=== PATIENT | male | born 1960 | race African-American/Black ===

== ENCOUNTER → 2018-06-22 | Day surgery (SDC) | payer OTHER ==
[~2018-06-22] MED LIST: BUPIVACAINE HCL 0.5 % INJ/PF 30 ML SDV ONE; LIDOCAINE 1% INJ-PF (10 MG/ML) 30 ML SDV ONE; METHYLPREDNISOLONE ACETATE INJ 40 MG/1 ML ML ONE
--- NOTE | 2018-06-22 15:36 | OPERATIVE REPORT E ---
Operative Report NAME: JANNET APARICIO : 1960 AGE: 57Y DATE OF SURGERY: 06/22/2018 ROOM: PREOPERATIVE DIAGNOSIS: LUMBAR SPONDYLOSIS, L5-S1 WITH INTRACTABLE LOWER BACK PAIN. POSTOPERATIVE DIAGNOSIS: LUMBAR SPONDYLOSIS, L5-S1 WITH INTRACTABLE LOWER BACK PAIN. OPERATION: Cold radiofrequency ablation at the L5 and sacral ala levels using fluoroscopy and cold RF technology. SURGEON: JOSE MUNOZ M.D. ANESTHESIA: Local. INDICATIONS: Positive relief with test blockade of the same regions. COMPLICATIONS: None. BLOOD LOSS: None. SPECIMENS REMOVED: None. PROCEDURE: After obtaining informed consent,advising the patient of the risks and benefits including neurological injury, bleeding, infection, aggravation of pain, allergic reaction, paralysis, and he was taken to the fluoroscopy suite placed comfortably in the prone position. He was evaluated under fluoroscopy and suitable entrance sites were selected for placement of the needles at the right and left L5-S1 regions. Beginning on the right, *------* was placed above the L5 transverse process and the sacral ala using 1% lidocaine. A small incision was made in the skin. The RF trocar was then inserted under fluoroscopic guidance to be positioned at the junction of the transverse processes and the superior articulating surface followed by the sacral ala and its superior articulating surface on the right. Probes were placed and testing began with motor and sensory functions. These were satisfactory. Each needle was then instilled with 2 mL of 0.5% Bupivacaine. Appropriate waiting time of approximately 1 minute was given. The RF lesioning was then made at 60 degrees for 2 minutes and 30 seconds. The patient tolerated this well. Approximately 20 mg of Depo-Medrol was then instilled into each needle and flushed with another 0.5 mL of 0.5% Bupivacaine. While the lesions were made, needles had been positioned on the left side as described above. Once completed, the lesion on the right, the trocars were removed, and the Stylette's were removed. The radiofrequency probes were then placed into the needles on the left. Testing was performed as described above followed by administration of local anesthetic. When the lesions were completed at 2 minutes and 30 seconds for 60 degrees, steroid was placed as described above, followed by a small flushing of 0.5 mL 0.5% Bupivacaine. All instrumentation was removed. All regions were cleansed. Sterile dressings were placed. The patient remained neurologically and hemodynamically intact and was taken to the waiting room to be monitored and released. DICTATING PHYSICIAN: JOSE MUNOZ M.D. [id number] PHY#: [id number] ID: [id number] JOB#: [id number] ACCT: [id number] cc:JOSE MUNOZ M.D. >
== END ==
LOC: RAD 13:23
PROVIDERS: ATTEND Pain Medicine Interventional Pain Medicine
DX: M47.817 Spondylosis without myelopathy or radiculopathy, lumbosacral region (principal)
CPT/HCPCS: 64635; 64636; J3490 ×2; J1020

== ENCOUNTER → 2019-06-21 | Outpatient (CLI) | payer OTHER | LOC: LAB 10:27 | PROVIDERS: ATTEND Otolaryngology | DX: J30.9 Allergic rhinitis, unspecified (principal) | CPT/HCPCS: 36415; 82785; 86003 ==

== ENCOUNTER → 2019-07-11 | Outpatient (CLI) | payer OTHER ==
--- NOTE | 2019-07-11 17:00 | RADIOLOGY REPORT (SQ) ---
EXAM DESCRIPTION: CT SOFT TISSUE NECK WITH COMPLETED DATE/TIME: 07/11/2019 1:32 pm REASON FOR STUDY: R22.1 NECK MASS J01.91 ACUTE RECURRENT SINUSITIS, UNSPECIFIED COMPARISON: None. TECHNIQUE: Post IV contrasted scanning from skull base through lung apices with review of bone, soft tissue and lung windows. Reconstructed coronal and sagittal MPR images reviewed. All images stored on PACS. All CT scanners at this facility use dose modulation, iterative reconstruction, and/or weight based d osing when appropriate to reduce radiation dose to as low as reasonably achievable (ALARA). [facility]: Dose Right [facility]: CareDose [facility]: Dose Right [facility]: Teradose 4D [facility]: [employer] CONTRAST TYPE AND DOSE: contrast/concentration: Isovue 350.00 mg/ml; Total Contrast Delivered: 75.0 ml; Total Saline Delivered: 55.0 ml RENAL FUNCTION: Creatinine 0.9. RADIATION DOSE: . LIMITATIONS: None. FINDINGS: SKULL BASE: Intact. MAJOR SALIVARY GLANDS: No solid or cystic masses. No inflammatory changes. LYMPHADENOPATHY: No adenopathy. MUCOSAL MASSES OR ASYMMETRY: No mucosal masses or asymmetry. LARYNX/CORDS: No abnormal findings. VASCULAR STRUCTURES: The major vessels are patent. There are surgical clips adjacent to the left car otid artery, presumably previous carotid endarterectomy. Ectatic vessel with dilation of the proxima l left internal carotid artery. The transverse measurement of the vessel is 1.5 cm. Apparent mural thrombus. The lumen patent to contrast is 5 mm. LUNG APICES: Clear. BONES: Intact. THYROID: Normal size. No masses. PARANASAL SINUSES: Clear. OTHER: No other significant finding. IMPRESSION: 1. SURGICAL CHANGES INVOLVING THE LEFT CAROTID ARTERY. 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 RECOMMEND FURTHER EVALUATION WITH CAROTID DOPPLER. 2. NO OTHER SIGNIFICANT FINDING IN THE SOFT TISSUES OF THE NECK. NO SOFT TISSUE MASS OR SIGNIFICANT ADENOPATHY. TECHNICAL DOCUMENTATION: JOB ID: [id number] Quality ID # [id number]: Final reports with documentation of one or more dose reduction techniques (e.g., Au tomated exposure control, adjustment of the mA and/or kV according to patient size, use of iterative reconstruction technique) 2010 [employer]- All Rights Reserved Reading location - IP/workstation name: [email or web address]
--- NOTE | 2019-07-12 11:32 | RADIOLOGY REPORT (SQ) ---
EXAM DESCRIPTION: CT SINUSES FOR ENT COMPLETED DATE/TIME: 07/11/2019 1:32 pm REASON FOR STUDY: J01.91 ACUTE RECURRENT SINUSITIS, UNSPECIFIED J01.91 ACUTE RECURRENT SINUSITIS, U NSPECIFIED COMPARISON: None. TECHNIQUE: Noncontrast scanning through the paranasal sinuses using bone algorithm. Reconstructed MPR images reviewed. All images stored on PACS. All CT scanners at this facility use dose modulation, iterative reconstruction, and/or weight based d osing when appropriate to reduce radiation dose to as low as reasonably achievable (ALARA). [facility]: Dose Right [facility]: CareDose [facility]: Dose Right [facility]: Teradose 4D [facility]: [employer] RADIATION DOSE: 47mGy. LIMITATIONS: None. FINDINGS: Right sinuses and drainage pathways: Post-surgical changes: None. Frontal sinus: Mucous membrane thickening at the right frontal sinus outlet coronal images 81-85 Frontoethmoidal Recess: Opacified Anterior Ethmoid Sinuses: Mucous membrane thickening. Posterior Ethmoid Sinuses: Mucous membrane thickening. Sphenoid Sinus: Normal. Sphenoethmoidal Recess: Normal. Maxillary Sinus: Normal. Ostiomeatal Complex: Mucous membrane thickening opacifies the right maxillary outlet on coronal imag es 81 through 86. There are Kev cells and a pneumatized right middle turbinate narrowing the righ t maxillary outlet. Left Sinuses and Drainage Pathways: Post-Surgical Changes: None. Frontal Sinus: Normal. Frontoethmoidal Recess: Normal Anterior Ethmoid Sinuses: 6 mm osteoma anterior left ethmoid/agger Nasi cell, best shown on coronal image 83/388 and axial image 75/141. Posterior Ethmoid Sinuses: Normal. Sphenoid Sinus: Normal. Sphenoethmoidal Recess: Normal. Maxillary Sinus: Mucus or serous retention cyst medial wall left maxillary sinus coronal image 94. Ostiomeatal Complex: Mucous membrane thickening narrows the ostiomeatal complex. There is also left tejeda nasal septal deviation and a prominent Kev cell on coronal images 90-108. Right Olfactory Fossa: No polyps. Left Olfactory Fossa: No polyps. Middle Turbinate Mecca Bull[place]: On the right Paradoxical Middle Turbinate: No. Atelectatic Uncinated Process: No. Frontal Manuela Cell Type I: Bilateral Frontal Manuela Cell Type II: Bilateral Interfrontal Sinus Septal Cell: Yes Supra-Orbital Ethmoid: Bilateral Frontal Bullar Cell: None. Suprabullar Bullar Cell: None. Sphenoethmoidal ([place]) Cell: None. Pneumatization of the Anterior Clinoid Processes: No Pneumatization of the pterygoid recesses: Yes bilateral Hypoplastic Maxillary Sinus: None. Osteoneogenesis: None. Bone Dehiscence:None. Nasal Cavity: Normal. Nasal Septum: Significant leftward nasal septal deviation on coronal image 88 Anatomic Variants: Right Vidian Canal: Normal. Left Vidian Canal: Normal. Mastoid air cells, middle ear cavities are clear IMPRESSION: Mucous membrane thickening at the bilateral frontal and maxillary outlets. TECHNICAL DOCUMENTATION: JOB ID: [id number] Quality ID # [id number]: Final reports with documentation of one or more dose reduction techniques (e.g., Au tomated exposure control, adjustment of the mA and/or kV according to patient size, use of iterative reconstruction technique) 2010 [employer]- All Rights Reserved Reading location - IP/workstation name: [email or web address]
== END ==
LOC: RAD 12:46
PROVIDERS: ATTEND Otolaryngology
DX: J01.91 Acute recurrent sinusitis, unspecified (principal); R22.1 Localized swelling, mass and lump, neck
CPT/HCPCS: 70486; 70491; 82565